=== PATIENT | female | born 1940 | race Two or more races ===

== ENCOUNTER 2023-03-24 10:02 | Emergency (ER) | payer OTHER ==
[~2023-03-24] VITALS: Ht 149.9 cm; Wt 63.0 kg
[~2023-03-24 10:02] MED LIST: EVISTA60 MG PO; LISINOPRIL10 MG PO
[2023-03-24] MEDS ORDERED: ATORVASTATIN CA10 MG PO (10:52)
[2023-03-24 12:08] LABS: URINE APPEARANCE Clear; URINE BILIRRUBIN Negative (NEGATIVE); URINE BLOOD Negative; URINE COLOR Yellow; URINE GLUCOSE Negative (NEGATIVE); URINE LEUKOCYTE Negative; URINE NITRATE Negative; URINE PROTEIN Negative (NEGATIVE); URINE UROBILINOGEN 0.2 E.U./dl
[2023-03-24 12:09] LABS: URINE BACTERIA 12.5 uL (0.0-1933); URINE EPITHELIAL CELLS 2.6 uL (0.0-38.8)
[2023-03-24 12:10] LABS: HEMATOCRIT 34.3 % (36.0-45.00); HEMOGLOBIN 11.8 g/dL (12.0-15.00); MEAN CELL VOLUME 89.8 fL (80.00-100.00); MEAN CORPUSCULAR HEMOGLOBIN 30.9 pg (27.00-32.0); MEAN CORPUSCULAR HGB CONC 34.4 g/dl (32.0-36.0); PLATELET COUNT 309 K/uL (150-450); RED BLOOD COUNT 3.82 M/uL (4.00-6.00); RED CELL DISTRIBUTION WIDTH 13.8 % (11.5-14.5)
[2023-03-24 12:31] LABS: INR 0.98; PARTIAL THROMBOPLASTIN TIME 24.9 SECONDS (22.0-34.0); PROTHROMBIN TIME 10.3 SECONDS (9.0-11.5)
[2023-03-24 12:34] LABS: URINE RBC 1.8 uL (0.0-20.8); URINE WBC 1.5 uL (0.0-23.2)
[2023-03-24 12:43] LABS: CALCIUM 9.2 mg/dL (8.5-10.1); CREATININE SERUM 1.58 mg/dL (0.55-1.02); GFR 31.39; POTASSIUM 4.48 mEq/L (3.5-5.1)
== END 2023-03-24 16:18 | disposition home or self-care (01) ==
LOC: ER 10:03
PROVIDERS: Emergency Medicine
DX: K62.5 Hemorrhage of anus and rectum (principal); E78.00 Pure hypercholesterolemia, unspecified; I10 Essential (primary) hypertension; K57.30 Diverticulosis of large intestine without perforation or abscess without bleeding; Z20.822 Contact with and (suspected) exposure to COVID-19
CPT/HCPCS: 36415; 74177; 96365; 96366; 99284; J7030; Q9965